=== PATIENT | male | born 2000 | race Caucasian/White ===

== ENCOUNTER 2024-01-13 00:57 | Emergency (ER) | payer MEDICAID ==
[~2024-01-13] VITALS: Ht 182.9 cm; Wt 95.5 kg
[2024-01-13] MEDS ORDERED: NAPR-56 PO (02:24)
[2024-01-13] MEDS ORDERED: AMOX-580 PO (02:24)
[2024-01-13] MEDS: amox tr/potassium clavulanate 875/125mg TAB PO ONE (02:36)
[2024-01-13] MEDS: ketorolac trometh 30MG/ML vial 30 MG/ML VIAL IM ONE (02:39)
[2024-01-13 02:43] VITALS: BP 152/93; PULSE 116; RESP 16; TEMP 98.2; O2SAT 98
== END 2024-01-13 02:47 | disposition home or self-care (01) ==
LOC: ER 00:58
DX: K02.9 Dental caries, unspecified (principal); Z88.0 Allergy status to penicillin; Z88.1 Allergy status to other antibiotic agents; Z88.6 Allergy status to analgesic agent
CPT/HCPCS: 96372; 99283; J1885

== ENCOUNTER 2024-04-22 11:23 | Emergency (ER) | payer MEDICAID ==
[~2024-04-22] VITALS: Ht 182.9 cm; Wt 100.8 kg
[2024-04-22] MEDS ORDERED: CLINDAMYCIN 600mg IN NS 50ML 50 ML IV ONE (12:05)
[2024-04-22] MEDS: clindamycin 600mg/D5W 50ml 50 ML IV ONE (12:20)
[2024-04-22] MEDS ORDERED: iohexol 300mg/ml 100ml inj. ONE (12:31)
[2024-04-22 12:46] LABS: BASOPHILS % (AUTO) 0.3 % (0-1); EOSINOPHILS # (AUTO) 0.1 X10'3 (0-0.9); EOSINOPHILS % (AUTO) 0.9 % (0-6); HEMATOCRIT 36.7 % (42.0-52.0); HEMOGLOBIN 12.3 g/dl (14.0-17.9); LYMPHOCYTES # (AUTO) 2.3 X10'3 (1.1-4.8); LYMPHOCYTES % (AUTO) 28.8 % (21-51); MEAN CORPUSCULAR HEMOGLOBIN 28.7 PG (27.0-31.0); MEAN CORPUSCULAR HGB CONC 33.6 g/dL (33.0-36.5); MEAN CORPUSCULAR VOLUME 85.3 FL (78-98); MONOCYTES # (AUTO) 0.8 X10'3 (0-0.9); MONOCYTES % (AUTO) 10.4 % (2-12); NEUTROPHILS # (AUTO) 4.8 X10'3 (1.8-7.7); NEUTROPHILS % (AUTO) 59.6 % (42-75); PLATELET COUNT 228 X10'3 (140-440); RED BLOOD COUNT 4.31 X10'6 (4.70-6.10); RED CELL DISTRIBUTION WIDTH 13.6 % (11.5-14.5); WHITE BLOOD COUNT 8.1 X10'3 (4.5-11.0)
[2024-04-22 13:01] LABS: ALBUMIN 3.5 G/DL (3.4-5.0); CALCIUM 8.7 MG/DL (8.5-10.1); MAGNESIUM 2.8 MG/DL (1.5-2.4); TOTAL CARBON DIOXIDE 24.4 MMOL/L (24-32)
[2024-04-22 13:05] LABS: ANION GAP 9 (8-16); BLOOD UREA NITROGEN 10 MG/DL (7-18); BUN/CREATININE RATIO 22.7 (10.0-20.0); CHLORIDE 105 MMOL/L (99-107); CREATININE 0.44 MG/DL (0.60-1.10); GLUCOSE 108 MG/DL (70-104); POTASSIUM 4.1 MMOL/L (3.5-5.1); SODIUM 138 MMOL/L (135-145); eCRCL 282 ML/MIN; eGFR > 90 ML/MIN
[2024-04-22 14:01] VITALS: TEMP 98.5
[2024-04-22] MEDS: normal saline 1000ml 1,000 ML IV ONE (14:05)
[2024-04-22] MEDS ORDERED: CLIN-97 PO (14:40)
[2024-04-22] MEDS ORDERED: HYDR-3965 PO (14:40)
[2024-04-22 15:11] VITALS: BP 187/108; PULSE 110; RESP 16; O2SAT 97
== END 2024-04-22 15:19 | disposition home or self-care (01) ==
LOC: ER 11:24
DX: K04.7 Periapical abscess without sinus (principal); L03.211 Cellulitis of face; J32.9 Chronic sinusitis, unspecified
CPT/HCPCS: 36415; 70487; 80048; 83735; 84145; 85025; 87040; 96361; 96365; 99285; J3490; J7030; Q9967

== ENCOUNTER 2024-12-25 20:43 | Emergency (ER) | payer MEDICAID ==
[~2024-12-25] VITALS: Ht 180.3 cm; Wt 97.7 kg
[~2024-12-25 20:43] MED LIST: CLIN-224 PO
[2024-12-25 20:49] VITALS: BP 150/94; PULSE 128; O2SAT 97
--- NOTE | 2024-12-25 21:19 | RADIOLOGY REPORT ---
CLINICAL INDICATION: R/O FRACUTRE POST FALL TECHNIQUE: 3 views DI HAND, COMPLETE (3VW MIN) Comparison: None FINDINGS: Mildly angulated and displaced fracture of the 5th metacarpal neck. Overlying soft tissue swelling. No dislocation. No additional fracture. Bifid 1st proximal phalanx and duplicated distal phalanxes. IMPRESSION: 1. Acute right 5th metacarpal neck fracture. 2. Radial polydactyly.
--- NOTE | 2024-12-25 23:14 | Physician Documentation ---
History of Present Illness ~ Chief Complaint: Hand pain Stated Complaint: RIGHT HAND PAIN Time Seen by MD: 23:04 Primary Medical Doctor: None HPI Is a 24-year-old male that presents to the emergency department for evaluation of pain to the right hand. Patient reports that he was drinking the prior day must have fallen on his hand woke up with his hand swollen and painful today. Patient reports that he has no recollection of the event but that his hand is very painful at this time. Tetanus within 5 years: No Medication Reconciliation Allergies: Coded Allergies: No Known Allergies (Unverified , 04/22/24) Scheduled Clindamycin HCL* (Clindamycin HCL*), 1 CAP PO Q6H Past Medical History Past Medical History: No Pertinent History Past Surgical History: no surgical history Alcohol Use: None Drug Use: none Lives with: Father, Family Lives In: Home Occupation: employed, student Review of Systems ROS As stated above in the HPI, otherwise all systems are reviewed and negative. Physical Exam Vital Signs: Temperature: 97.0, Heart Rate: 128, Respiratory Rate: 20, BP: 150/94, Pulse Oximetry: 97, Weight: 97.700 Oxygen Flow Rate: 0 Physical Exam VITALS: Reviewed and as above. GENERAL: Alert, no apparent distress. HEENT: Normocephalic, atraumatic, PERRL, EOMI, dry mucosa, no erythema RESPIRATORY: Lungs clear, normal breath sounds, no respiratory distress. CHEST: No accessory muscle use, no retractions CV: Regular rate, rhythm, no edema, no murmur, No: JVD GI: Soft, non-tender, bowels sounds present, no rebound, guarding, or rigidity BACK: No CVA tenderness, or swelling MUSCULOSKELETAL No deformities, significant edema and bruising to the dorsal lateral aspect of the right hand. SKIN: Warm and dry, no rash NEURO: Oriented x4, No motor or sensory deficit PSYCH: Normal mood and affect, no agitation Progress Results/Orders Results/Orders Orders - SANDY GOMESP Hand, Complete (3vw Min) (12/25/24 ) Hydrocodone/Apap 10/325 ([place] 10/325mg (12/25/24 23:25) Completed Orders - SANDY GOMES COLLECTION ANALYST Hand, Complete (3vw Min) (12/25/24 ) Vital Signs 12/25/24 20:49 Temp 97.0 Pulse 128 Resp 20 B/P (MAP) 150/94 Pulse Ox 97 O2 Flow Rate 0 Medical Decision Making Findings The Pt was found to have a closed right hand 5th metacarpal fracture on XR. The Pt is otherwise well appearing, hemodynamically stable, and shows no evidence of neurovascular injury or compartment syndrome. Patient was placed in ulnar gutter splint. Patient will follow up with ortho in the morning, contact information has been provided. Patient will follow up with his primary care provider. Patient will return to the emergency department with any worsening of his current symptoms or any additional concerning symptoms that we discussed here today i.e. increased swelling increased redness numbness or tingling in the hand fever chills or any other concerning symptoms. General Diff Dx:Considerations: Include: Abrasion, Contusion, Fracture, Hematoma, Laceration, Malunion, Neurovascular injury, Open fracture, Sprain, Ulcer, Other Hand Diff Dx:Considerations: Include: Abrasion, Arthritis, Contusion, DJD, Felon, Fracture-carpal, Fracture-metacarpal, Fracture-phalynx, Fracture-radius, Fracture-ulna, Gout, Hematoma, Herpetic nargis, Laceration, Neurovascular injury, Open fracture, Paronychia, Rheumatoid arthritis, Septic, Sprain, Subungual hematoma, Tenosynovitis, Volar plate injury, Cellulitis, Malunion, Other Departure Disposition: 01 HOME / SELF CARE / HOMELESS Impression: Primary Impression: Fracture of hand Additional Impressions: Hand pain Superficial bruising Swelling Condition: Stable Discharge Instructions: Fracture, Hand Additional Instructions: The Pt was found to have a closed right hand 5th metacarpal fracture on XR. The Pt is otherwise well appearing, hemodynamically stable, and shows no evidence of neurovascular injury or compartment syndrome. Patient was placed in ulnar gutter splint. Patient will follow up with ortho in the morning, contact information has been provided. Patient will follow up with his primary care provider. Patient will return to the emergency department with any worsening of his current symptoms or any additional concerning symptoms that we discussed here today i.e. increased swelling increased redness numbness or tingling in the hand fever chills or any other concerning symptoms. Please follow up with [facility] in the morning ([phone]). Referrals: NO PRIMARY CARE PROVIDER (PCP) Education Educated: Patient Educated regarding: diagnosis, treatment, need for follow up Signature Scribe Signature: A Attestation: Scribed for Sandy Gomes by JADYN Bustamante . 12/25/24 23:20 SANDY GOMES Dec 25, 2024 23:14
[2024-12-25 23:28] VITALS: TEMP 97
[2024-12-25 23:38] VITALS: RESP 22
[2024-12-25] MEDS: HYDROcodone/acetaminophen 10/325mg tab PO ONE (23:38)
== END 2024-12-25 23:40 | disposition home or self-care (01) ==
LOC: ER 20:44
DX: S62.336A Displaced fracture of neck of fifth metacarpal bone, right hand, initial encounter for closed fracture (principal); X58.XXXA Exposure to other specified factors, initial encounter; Y93.89 Activity, other specified; Y92.89 Other specified places as the place of occurrence of the external cause; Y99.8 Other external cause status
CPT/HCPCS: 29125; 73130; 99283